=== PATIENT | male | born 1995 | race Caucasian/White ===

== ENCOUNTER 2023-01-17 15:25 | Emergency (ER) | payer BC, OTHER ==
[2023-01-17 15:45] VITALS: BP 137/111; O2SAT 97
[2023-01-17 15:51] LABS: Absolute Neutrophil Ct (ANC) 4.02 x10^3/uL (1.4-6.9); BASOPHIL % 0.9 % (0.0-0.4); Basophil (Absolute #) 0.06 x10^3/uL (0-0.4); Eosinophil % 2.6 % (0.00-5.0); Eosinophil (Absolute #) 0.17 x10^3/uL (0-0.5); Hematocrit 43.6 % (42-50); Hemoglobin 14.4 g/dL (12.5-18.0); IMMATURE GRAN # 0.01 x10^3u/L (0.00-0.03); IMMATURE GRAN % 0.2 % (0.00-0.4); Lymphocytes % 28.6 % (24.0-44.0); Mean Cell Volume 87.6 fL (78-100); Mean Corpuscular Hemoglobin 28.9 pg (26-32); Mean Platelet Volume 9.3 fL (7.5-11.0); Monocyte (Absolute #) 0.48 x10^3/uL (0.0-1.3); Monocytes % 7.2 % (0.0-12.0); Neutrophil % 60.5 % (36.0-66.0); Platelet Count 300 x10^3/uL (150-450); Red Blood Count 4.98 x10^6/uL (4.1-5.6); Red Cell Distribution Width 13.1 % (11.5-14.0); White Blood Count 6.6 x10^3/uL (4.0-10.5)
[2023-01-17] MEDS ORDERED: TRUVADA 200 MG-300 MG TABLET PO STA (15:55)
[2023-01-17] MEDS ORDERED: Adacel Vial IM ONE ×2 (15:55→15:58)
[2023-01-17] MEDS ORDERED: ISENTRESS PO SCH ×2 (16:00→22:00)
[2023-01-17] MEDS ORDERED: TRUVADA 200 MG-300 MG TABLET ONE (16:00)
[2023-01-17 16:14] LABS: ALBUMIN 4.7 g/dL (3.5-5.0); ALKALINE PHOSPHATASE 91 U/L (38-126); ANION GAP 14.8 MEQ/L (5-15); BLOOD UREA NITROGEN 13 mg/dL (9-20); CHLORIDE 102 mmol/L (98-107); Calcium 9.2 mg/dL (8.4-10.2); Carbon Dioxide 27 mmol/L (22-30); Creatinine 1 0.92 mg/dL (0.66-1.25); EST GLOMERULAR FILTRATION RATE > 60.0 ML/MIN; Glucose 94 mg/dL (74-106); Potassium 3.9 mmol/L (3.5-5.1); SGOT/AST 41 U/L (17-59); SGPT/ALT 51 U/L (0-50); SODIUM 140 mmol/L (137-145)
--- NOTE | 2023-01-17 16:51 | ERPHSYRPT ---
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 He did not see any blood debris , but it was not a clean needle . The source upon which the needle was used cannot be accurately determined from the available objective evidence since we cannot independently verify any data given by the inmate. Therefore we must assume an unkown source , but at high risk for blood bourne pathogens. The patient states that he is monogamous with his and neither one has had any STDs , Hepatits, or HIV. The patient denies any other type of sexual activities , any IV drug use. The patient has had a couple of tatoos at a duly licensed establishment a few years ago. The pt denies any other BBP risk factors other than his work. The pt states that he has had his childhood immunizations including Hep B. After a discussion of risks and benefits of Tx, the rsiks of seroconversion for HIV and Hep C , and Hep B from his needle stick, , the patient wishes to begin PEP and also consents to the protocol for HIV , Hep , and other testing. Timing/Duration: today Severity: mild Modifying Factors: Improves With: nothing Associated Symptoms: denies symptoms Allergies/Adverse Reactions: No Known Drug Allergies Allergy (Verified 01/17/23 15:31) Home Medications: Venlafaxine HCl ER 37.5 mg [Effexor ER 37.5 MG] 75 mg DAILY 01/17/23 [History] Hx Tetanus, Diphtheria Vaccination/Date Given: No (MORE THAN 3) Hx Influenza Vaccination/Date Given: No Hx Pneumococcal Vaccination/Date Given: No Immunizations Up to Date: Yes Travel Risk - International Travel Have you traveled outside of the country in past 3 weeks: No - Coronavirus Screening Are you exhibiting any of the following symptoms?: No Close contact with a COVID-19 positive Pt in past 14-21 Days: No - Vaccine Status Have you recieved a Covid-19 vaccination: Yes Senior Restaurant Manager: Unknown - Vaccination Dates Date of 2cond Vaccination (if applicable): 2020 Dates if Unknown: ? - Review of Systems Constitutional: No Fever, No Chills Eyes: No Symptoms Ears, Nose, & Throat: No Symptoms Respiratory: No Cough, No Dyspnea Cardiac: No Chest Pain, No Edema, No Syncope Abdominal/Gastrointestinal: No Abdominal Pain, No Nausea, No Vomiting, No Diarrhea Genitourinary Symptoms: No Dysuria Musculoskeletal: No Back Pain, No Neck Pain Skin: No Rash Neurological: No Dizziness, No Focal Weakness, No Sensory Changes Psychological: No Symptoms Endocrine: No Symptoms Hematologic/Lymphatic: No Symptoms Immunological/Allergic: No Symptoms All Other Systems: Reviewed and Negative - Past Medical History Pertinent Past Medical History: No - Past Surgical History Past Surgical History: Yes Musculoskeletal: Orthopedic Surgery Other Surgical History: WRIST - Social History Smoking Status: Former smoker Exposure to second hand smoke: Yes Drug Use: none Patient Lives Alone: No - Nursing Vital Signs Nursing Vital Signs: Initial Vital Signs Temperature 96.7 F 01/17/23 15:44 Pulse Rate 89 01/17/23 15:44 Respiratory Rate 18 01/17/23 15:44 Blood Pressure 137/111 01/17/23 15:44 O2 Sat by Pulse Oximetry 97 01/17/23 15:44 Pain Scale Pain Intensity 0 - Physical Exam General Appearance: no apparent distress, alert Eye Exam: PERRL/EOMI, eyes nml inspection Ears, Nose, Throat Exam: normal ENT inspection, TMs normal, pharynx normal, moist mucous membranes Neck Exam: normal inspection, non-tender, supple, full range of motion Respiratory Exam: normal breath sounds, lungs clear, No respiratory distress Cardiovascular Exam: regular rate/rhythm, normal heart sounds, normal peripheral pulses Gastrointestinal/Abdomen Exam: soft, normal bowel sounds, No tenderness, No mass Back Exam: normal inspection, normal range of motion, No CVA tenderness, No vertebral tenderness Extremity Exam: normal inspection, normal range of motion, pelvis stable Neurologic Exam: alert, oriented x 3, cooperative, normal mood/affect, nml cerebellar function, nml station & gait, sensation nml, No motor deficits Skin Exam: normal color, warm, dry, other (no residula visible lesion from the needle stick on the patients finger), No rash Lymphatic Exam: No adenopathy SpO2 Interpretation: normal SpO2: 97 O2 Delivery: Room Air - Course Nursing assessment & vital signs reviewed: Yes Ordered Tests: Active Orders 24 hr Category Date Time Status Wound Care STAT Care 01/17/23 15:34 Active CBC W DIFF Stat Lab 01/17/23 15:45 Completed CMP Stat Lab 01/17/23 15:46 Completed Medication Summary Generic Name Dose Route Start Last Admin Trade Name Brett PRN Reason Stop Dose Admin Emtricitabine/Tenofovir 1 tablet 01/18/23 10:00 Emtricitabine/Tenofovir 1 Tablet PO 01/19/23 10:01 DAILY FAIZA Raltegravir 400 mg 01/17/23 16:00 01/17/23 16:02 Raltegravir Potassium 400 Mg Tablet PO 02/16/23 15:59 400 mg STAT FAIZA Administration Raltegravir 400 mg 01/17/23 22:00 01/17/23 16:16 Raltegravir Potassium 400 Mg Tablet PO 01/19/23 22:01 400 mg BID FAIZA Administration Discontinued Medications Generic Name Dose Route Start Last Admin Trade Name Brett PRN Reason Stop Dose Admin Diphtheria/Tetanus/Acell Pertussis 0.5 ml 01/17/23 15:55 01/17/23 16:03 Tdap --Diph,Pertuss(Acell),Tet Vac/Pf 0.5 Ml Vial IM 01/17/23 15:56 0.5 ml .ONCE ONE Administration Diphtheria/Tetanus/Acell Pertussis Confirm 01/17/23 15:58 Tdap --Diph,Pertuss(Acell),Tet Vac/Pf 0.5 Ml Vial Administered 01/17/23 15:59 Dose 0.5 ml IM .STK-MED ONE Emtricitabine/Tenofovir 1 tablet 01/17/23 15:55 01/17/23 16:02 Emtricitabine/Tenofovir 1 Tablet PO 01/17/23 15:56 1 tablet STAT STA Administration Emtricitabine/Tenofovir Confirm 01/17/23 16:00 Emtricitabine/Tenofovir 1 Tablet Administered 01/17/23 16:01 Dose 2 tablet .ROUTE .STK-MED ONE Lab/Rad Data: Laboratory Result Diagrams 01/17/23 15:45 01/17/23 15:46 Laboratory Results 01/17/23 01/17/23 Range/Units 15:46 15:45 WBC 6.6 (4.0-10.5) x10^3/uL RBC 4.98 (4.1-5.6) x10^6/uL Hgb 14.4 (12.5-18.0) g/dL Hct 43.6 (42-50) % MCV 87.6 (78-100) fL MCH 28.9 (26-32) pg MCHC 33.0 (32-36) g/dL RDW 13.1 (11.5-14.0) % Plt Count 300 (150-450) x10^3/uL MPV 9.3 (7.5-11.0) fL Gran % 60.5 (36.0-66.0) % Immature Gran % (Auto) 0.2 (0.00-0.4) % Nucleat RBC Rel Count 0.0 (0.00-0.1) % Eos # (Auto) 0.17 (0-0.5) x10^3/uL Immature Gran # (Auto) 0.01 (0.00-0.03) x10^3u/L Absolute Lymphs (auto) 1.90 (1.0-4.6) x10^3/uL Absolute Monos (auto) 0.48 (0.0-1.3) x10^3/uL Absolute Nucleated RBC 0.00 (0.00-0.01) x10^3u/L Lymphocytes % 28.6 (24.0-44.0) % Monocytes % 7.2 (0.0-12.0) % Eosinophils % 2.6 (0.00-5.0) % Basophils % 0.9 (0.0-0.4) % Absolute Granulocytes 4.02 (1.4-6.9) x10^3/uL Basophils # 0.06 (0-0.4) x10^3/uL Sodium 140 (137-145) mmol/L Potassium 3.9 (3.5-5.1) mmol/L Chloride 102 (98-107) mmol/L Carbon Dioxide 27 (22-30) mmol/L Anion Gap 14.8 (5-15) MEQ/L BUN 13 (9-20) mg/dL Creatinine 0.92 (0.66-1.25) mg/dL Estimated GFR > 60.0 ML/MIN Glucose 94 (74-106) mg/dL Calcium 9.2 (8.4-10.2) mg/dL Total Bilirubin 1.20 (0.2-1.3) mg/dL AST 41 (17-59) U/L ALT 51 H (0-50) U/L Alkaline Phosphatase 91 (38-126) U/L Serum Total Protein 8.0 (6.3-8.2) g/dL Albumin 4.7 (3.5-5.0) g/dL - Progress Progress: unchanged, re-examined Progress Note: 01/17/23 17:07 PEP meds provided to take the pt through the holiday weekend as per protocol and labs per protocol ordered. The pt is advised to return if there is a glitch and he cannot get the follow-on meds. 01/17/23 17:25 discussed potential risks and mitigations for the risks of transfer of infection to his and that they are trying to conceive . The pt is advised to seek infectious Dx consultation through his WC and / or his home for this answer and will only have protected sex or abstain meantime. 01/17/23 17:30 discussed risks and benefits from zofran and med interactions as this can help with the nausea as a common side effect from PEP and he wishes to proceed and has the capacity to make this choice. Counseled pt/family regarding: lab results, diagnosis, need for follow-up Medical Desision Making - Diagnostic Testing Diagnostic test were ordered, analyzed, and reviewed by me: Yes - Risk of complications The pt has a mod risk of morbidity or mortality based on: Need for prescription drug management The pt has a high risk of morbidity or mortality based on: Drug therapy requir ing intensive monitoring for toxicity - Departure Departure Disposition: Home Clinical Impression: needle stick injury/exposure Condition: Good Critical Care Time: No Referrals: DOCTOR,NO FAMILY [Primary Care Provider] - Follow up/PCP as directed Instructions: Post-Exposure Prophylaxis Additional Instructions: followup with your workmans comp from your work and if that cannot be accomplished then see your family DrMiles in order to have proper followup for the medications you are on and the testing protocols and results. The Health dept is an additional resource. Return meantime or see a DrMiles if there are any side effects of concern from the medicines. Followup with your DrMiles for your elevated blood pressure and slightly elevated Liver test - this will need to be rechecked by your treating DrMiles to verify that the meds are not affecting it adversly. Also seek referral to an infectious disease expert by your workers comp to discuss the risks of your tres a disease from you during this time and any effect on your efforts at conception. Prescriptions: Ondansetron ODT 4 MG [Zofran Odt 4 mg] 4 mg PO Q6H PRN PRN #10 tablet PRN Reason: Nausea
[2023-01-17 17:47] VITALS: PULSE 80
[2023-01-18] MEDS ORDERED: TRUVADA 200 MG-300 MG TABLET PO SCH (10:00)
[2023-01-21 07:21] LABS: HBsAg Screen Negative (Negative); HIV Screen 4th Generation wRfx Non Reactive (Non Reactive); Hep B Surface Ab, Quant 6.8 mIU/mL (Immunity>9.9); Hep C Virus Ab Non Reactive (Non Reactive)
== END 2023-01-17 17:47 | disposition home or self-care (01) ==
LOC: ED 15:25
DX: S61.231A Puncture wound without foreign body of left index finger without damage to nail, initial encounter (principal); W46.1XXA Contact with contaminated hypodermic needle, initial encounter; Y92.149 Unspecified place in prison as the place of occurrence of the external cause; Y99.0 Civilian activity done for income or pay; Z20.6 Contact with and (suspected) exposure to human immunodeficiency virus [HIV]; Z20.5 Contact with and (suspected) exposure to viral hepatitis; Z79.899 Other long term (current) drug therapy; Z23 Encounter for immunization
CPT/HCPCS: 36415; 80053; 85025; 86317; 87340; 87389; 90471; 99283; G0472; 86803; 90715; A9270-GY